=== PATIENT | male | born 1980 | race Caucasian/White ===

== ENCOUNTER 2023-09-05 12:14 | Emergency (ER) | payer MEDICAID ==
[~2023-09-05] VITALS: Ht 182.9 cm; Wt 90.9 kg
[2023-09-05 12:42] VITALS: BP 139/64; PULSE 77; RESP 20; TEMP 98.6; O2SAT 97
[2023-09-05] MEDS ORDERED: ibuprofen tablet 400 MG TABLET PO ONE (13:00)
[2023-09-05] MEDS ORDERED: NAPR-56 PO (14:53)
[2023-09-05] MEDS ORDERED: ketorolac trometh inj. 60 MG/2 ML VIAL IM ONE (14:55)
== END 2023-09-05 15:27 | disposition home or self-care (01) ==
LOC: ER 12:15
DX: S93.692A Other sprain of left foot, initial encounter (principal); X58.XXXA Exposure to other specified factors, initial encounter; Y93.89 Activity, other specified; Y92.89 Other specified places as the place of occurrence of the external cause; Y99.8 Other external cause status
CPT/HCPCS: 29515; 73564; 73590; 73610; 73630; 96372; 99284; J1885; L1930

== ENCOUNTER 2024-06-29 14:03 | Outpatient (CLI) | payer MEDICAID ==
[2024-06-29 14:48] VITALS: PULSE 70; RESP 14; O2SAT 95
== END 2024-06-29 23:59 | disposition home or self-care (01) ==
LOC: RT 14:03
PROVIDERS: ATTEND Family Medicine
DX: R06.02 Shortness of breath (principal)
CPT/HCPCS: 94010; 94760

== ENCOUNTER 2024-11-29 07:01 | Emergency (ER) | payer MEDICAID ==
[~2024-11-29] VITALS: Ht 182.9 cm; Wt 94.1 kg
[2024-11-29] MEDS ORDERED: HYDR-3965 PO (08:46)
[2024-11-29] MEDS: HYDROcodone/acetaminophen 10/325mg tab PO ONE (09:23)
[2024-11-29 09:26] VITALS: BP 136/84; PULSE 84; RESP 16; TEMP 98.9; O2SAT 99
== END 2024-11-29 09:15 | disposition home or self-care (01) ==
LOC: ER 07:02
DX: S62.616A Displaced fracture of proximal phalanx of right little finger, initial encounter for closed fracture (principal); I10 Essential (primary) hypertension; F17.200 Nicotine dependence, unspecified, uncomplicated; Z72.89 Other problems related to lifestyle; X50.1XXA Overexertion from prolonged static or awkward postures, initial encounter; Y93.89 Activity, other specified; Y92.89 Other specified places as the place of occurrence of the external cause; Y99.8 Other external cause status
CPT/HCPCS: 28515; 73630; 99284; L3260